=== PATIENT | male | born 1995 | race Caucasian/White ===

== ENCOUNTER 2022-02-18 09:42 | Emergency (ER) | payer MEDICAID ==
--- NOTE | 2022-02-18 11:18 | ED Physician Documentation ---
PD HPI HEENT - Stated complaint Stated Complaint: SINUS INFECTION - Chief complaint Chief Complaint: Heent - History obtained from History obtained from: Patient - Additional information Additional information: 27-year-old gentleman with history of obstructive sleep apnea on CPAP and morbid obesity presents with 4 days of illness. It started with a severe sore throat and around 2 days ago developed more nasal congestion and sinus pain with left ear pain as well. No fevers. Mild dry cough but painful cough. Review of Systems Constitutional: denies: Fever, Chills, Myalgias Ears: reports: Ear pain Nose: reports: Rhinorrhea / runny nose, Congestion Throat: reports: Sore throat Respiratory: reports: Cough. denies: Dyspnea PD PAST MEDICAL HISTORY - Present Medications Home Medications: Ambulatory Orders Medication Instructions Recorded Confirmed Amoxicillin 500 mg PO TID #30 cap 02/18/22 Fluticasone [Flonase] 1 sprays MARCEL BID #16 gm 02/18/22 - Allergies Allergies/Adverse Reactions: Allergies Allergy/AdvReac Type Severity Reaction Status Date / Time No Known Drug Allergies Allergy Verified 02/18/22 09:59 PD ED PE NORMAL - Vitals Vital signs reviewed: Yes - General General: Alert and oriented X 3, No acute distress - HEENT HEENT: Other (Severe left otitis media, swollen nasal turbinates and left maxillary sinus tenderness. Oropharynx normal.) - Cardiac Cardiac: RRR, No murmur - Respiratory Respiratory: No respiratory distress, Clear bilaterally - Abdomen Abdomen: Non tender - Back Back: No CVA TTP, No spinal TTP - Derm Derm: Normal color, Warm and dry - Extremities Extremities: No edema, No calf tenderness / cord - Neuro Neuro: Alert and oriented X 3, Normal speech Results - Vitals Vitals: Vital Signs - 24 hr 02/18/22 09:56 Temperature 36.6 C Heart Rate 87 Respiratory 16 Rate Blood Pressure 149/97 H O2 Saturation 97 Oxygen O2 Source Room air PD Medical Decision Making - ED course ED course: 27-year-old gentleman with sinus infection and left otitis media, will treat with amoxicillin and nasal steroid. Departure - Departure Disposition: 01 Home, Self Care Clinical Impression: LOM (left otitis media) Condition: Good Record reviewed to determine appropriate education?: Yes Instructions: ED Otitis Media Acute Adult Prescriptions: Amoxicillin 500 mg PO TID #30 cap Fluticasone [Flonase] 1 sprays MARCEL BID #16 gm Comments: I sent your prescriptions electronically to [facility] in [place]. You do have a bio fire respiratory PCR pending. You can look up the results in the patient portal online at [email or web address]. If it comes up positive for COVID we will call you. Return for new or worsening symptoms. Follow-up with your doctor on return home if not better.
[2022-02-18 11:22] LABS: B. PARAPERTUSSIS- RESP PCR PAN NOT DETECTED; B. PERTUSSIS- RESP PCR PANEL NOT DETECTED; C. PNEUMONIAE- RESP PCR PANEL NOT DETECTED; CORONAVIRUS 229E-RESP PCR NOT DETECTED; CORONAVIRUS HKU1-RESP PCR NOT DETECTED; CORONAVIRUS NL63-RESP PCR NOT DETECTED; CORONAVIRUS OC43-RESP PCR NOT DETECTED; HUMAN METAPNEUMOVIRUS NOT DETECTED; INFLUENZA A- RESP PCR PANEL NOT DETECTED; INFLUENZA B - RESP PCR PANEL NOT DETECTED; M. PNEUMONIAE- RESP PCR PANEL NOT DETECTED; PARAINFLUENZA VIRUS 1 NOT DETECTED; PARAINFLUENZA VIRUS 2 NOT DETECTED; PARAINFLUENZA VIRUS 3 NOT DETECTED; PARAINFLUENZA VIRUS 4 NOT DETECTED; RHINOVIRUS/ENTEROVIRUS NOT DETECTED; RSV- RESP PCR PANEL NOT DETECTED; SARS-CoV-2 -RESP PCR PANEL NOT DETECTED
[2022-02-18 11:24] VITALS: BP 145/78
== END 2022-02-18 11:24 | disposition home or self-care (01) ==
LOC: ED 09:42
DX: H66.92 Otitis media, unspecified, left ear (principal); Z20.822 Contact with and (suspected) exposure to COVID-19
CPT/HCPCS: 87633; 99283

== ENCOUNTER 2022-10-02 17:39 | Emergency (ER) | payer MEDICAID ==
[2022-10-02] MEDS ORDERED: DEXAMETHASONE 10 MG/ML VIAL PO STA (17:49)
[2022-10-02] MEDS ORDERED: CHERRY SYRUP 10 ML UDC PO ONE (17:49)
[2022-10-02] MEDS ORDERED: cephALEXin 250 MG CAPSULE PO STA (17:49)
--- NOTE | 2022-10-02 17:51 | ED Physician Documentation ---
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 Today he developed spreading redness there and blistering in the area. No fevers. He notes a longer term rash with blistering lesions on the right leg, unrelated to the bee sting. He is trying to lose weight, noting current BMI is 54. PD PAST MEDICAL HISTORY - Present Medications Home Medications: Ambulatory Orders Medication Instructions Recorded Confirmed Amoxicillin 500 mg PO TID #30 cap 02/18/22 Fluticasone [Flonase] 1 sprays MARCEL BID #16 gm 02/18/22 cephALEXin [Keflex] 500 mg PO Q6H #28 cap 10/02/22 predniSONE [Deltasone] 60 mg PO DAILY 3 Days #9 tablet 10/02/22 - Allergies Allergies/Adverse Reactions: Allergies Allergy/AdvReac Type Severity Reaction Status Date / Time No Known Drug Allergies Allergy Verified 10/02/22 17:49 PD ED PE NORMAL - Vitals Vital signs reviewed: Yes - General General: Alert and oriented X 3, No acute distress - Abdomen Abdomen: Normal bowel sounds, Soft, Non tender - Extremities Extremities: Other (There is an area of redness over the anteromedial right knee measuring about palm size with venous stasis changes in the legs.) - Neuro Neuro: Alert and oriented X 3, Normal speech Results - Vitals Vitals: Vital Signs - 24 hr 10/02/22 17:40 Temperature 36.5 C Heart Rate 107 H Respiratory 16 Rate Blood Pressure 154/76 H O2 Saturation 100 Oxygen O2 Source Room air PD Medical Decision Making - ED course ED course: Probably mostly an uninfected bee sting. That said given his venous stasis, BMI would treat for infection presumptively. Departure - Departure Disposition: 01 Home, Self Care Clinical Impression: Bee sting reaction, Venous stasis Condition: Good Record reviewed to determine appropriate education?: Yes Instructions: ED Sting Bite Insect Infec Prescriptions: predniSONE [Deltasone] 60 mg PO DAILY 3 Days #9 tablet cephALEXin [Keflex] 500 mg PO Q6H #28 cap Comments: Call your doctor to arrange a follow-up appointment, make the next available appointment. In the interim, return anytime if worse or if new symptoms develop.
[2022-10-02 18:03] VITALS: BP 154/76; O2SAT 100
== END 2022-10-02 18:03 | disposition home or self-care (01) ==
LOC: ED 17:39
DX: T63.441A Toxic effect of venom of bees, accidental (unintentional), initial encounter (principal); I87.8 Other specified disorders of veins; Z68.43 Body mass index [BMI] 50.0-59.9, adult
CPT/HCPCS: 99282; 99283; A9270